=== PATIENT | female | born 1950 | race Caucasian/White ===

== ENCOUNTER 2016-11-13 06:49 | Observation (INO) | payer OTHER ==
[~2016-11-13] VITALS: Ht 157.5 cm; Wt 90.2 kg
[2016-11-13] VITALS (11 sets, daily range): BP systolic 116–155; BP diastolic 47–98
--- NOTE | ~2016-11-13 | H ---
[facility] [place] [address] HISTORY AND PHYSICAL Name: STRAUSSREBECCA Gene Room #: 211-P [facility] Loulou MMelviRMelvi#: [id number] Admission: 11/13/16 Attend Phys: Berny Bravo MD, Discharge: 11/14/16 Date of : 52 Report #: [id number] THIS REPORT FOR: //name// For History and Physical, please see office documentation/handwritten note in the patient's medical record. <ELECTRONICALLY SIGNED> By: Berny Bravo MD, FACC 11/26/16 1544 0849 Berny Bravo MD, FACC /jr
--- NOTE | ~2016-11-13 | CATHLAB ---
[facility] [address] [place] [place] [address] INVASIVE PROCEDURE REPORT Name: STRAUSSREBECCA K Room #: 211-P [facility]#: [id number] Admission: 11/13/16 Attend Phys: Berny Bravo, Discharge: 11/14/16 Date of : 52 Date of Service: 11/13/16 0934 Report #: [id number] THIS REPORT FOR: //name// CC: Berny [facility] DATE OF SERVICE: 11/13/2016 PROCEDURES: Left ventriculography, coronary angiography, PTCA stent to LAD. DESCRIPTION OF PROCEDURE: The patient brought to the catheterization with recurrent chest pain, anginal symptoms and a nuclear stress test suggesting anterior ischemia. Right groin prepped and draped in sterile manner. ____ Xylocaine was used for local anesthesia. Versed was given for conscious sedation. A 6-Kiswahili sheath in the right femoral artery over the wire. Initially, a straight pigtail catheter utilized from a single CLEMENTE ventriculogram. SL4 left coronary system, FR4 right coronary system, multiple views and obliques were taken. The patient tolerated it well. There was evidence of some progression in the proximal mid LAD lesion which was hazy and consistent with the findings. The ostial diagonal branch was noted, as was an ostial RCA which is in the 60% range with some damping in the catheter previously noted in mid RCA of 40-50%. That was a dominant vessel. I utilized a 3-0 EBU guide, heparin, Integrilin boluses. A 2.5 x 12 balloon to dilate this proximal mid LAD lesion and then this exchanged over the wire magnet for 2.75 x 12 Resolute drug-eluting stent, deployed at 12 atmospheres and then dilated within the stent margins to 16 atmospheres. Final result was excellent with RONDA grade 3 flow. This did chcf a very small diagonal branch, which would be of no consequence. The patient tolerated well, hemodynamically stable and pain free. ACT with 200 Mynx closure was utilized without complication. The patient transferred back to CCU to follow stent protocol. HEMODYNAMICS: Aortic 120/80, LV 130/9. IMPRESSION: 1. Successful PTCA stent of the mid LAD from 80% to 0% with a 2.75 x 12 Resolute, post ____ 3.0 mm, RONDA grade 3 flow. 2. Left main, free of disease. 3. Ostial diagonal lesion a 50%, we will follow. 4. A proximal ostial LAD lesion of 50%, we will follow. 5. Circumflex marginal with mild disease. 6. Dominant right has an eccentric ostial lesion on the right of 60%-65%, which had been previously noted. 7. A mid RCA also with 50% mid vessel lesion, continue to follow. RECOMMENDATIONS: We will continue aggressive risk factor modification, dual antiplatelet therapy x 6-12 months, we will reevaluate, no lifting for 48 hours. [facility] [address] [place] [address] INVASIVE PROCEDURE REPORT Name: REBECCA STRAUSS Room #: 211-P [facility] M.R.#: [id number] Admission: 11/13/16 Attend Phys: Berny Bravo, Discharge: 11/14/16 Date of : 52 Date of Service: 11/13/16 0934 Report #: [id number] No lying in tub, Jacuzzi or navarro for a week. The patient transferred to CCU in stable condition. <ELECTRONICALLY SIGNED> By: Berny Bravo MD, FACC 11/26/16 1543 0934 1159 Berny Bravo MD, FACC /nt
--- NOTE | ~2016-11-13 | EKG ---
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
--- NOTE | ~2016-11-13 | EKG ---
[address] [address] ELECTROCARDIOGRAM REPORT Name: REBECCA STRAUSS Room #: 211-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 : 1950 Requested By: Berny Bravo Order Number: [id number] MD: Nhan Freed Measurements Intervals [place] Rate: 67 P: 58 [place]: 127 QRS: 22 QRSD: 94 T: 36 QT: 433 QTc: 457 Interpretive Statements Sinus rhythm No significant abnormality Compared to ECG 11/13/2016 07:35:18 No significant changes Electronically Signed On 11-14-2016 7:55:53 CDT by Nhan Freed [email or web address] <ELECTRONICALLY SIGNED> By: Nhan Freed MD, [facility] 11/14/16 0755 [phone] Nhan Freed MD, [facility] /EPI
--- NOTE | ~2016-11-13 | D ---
[facility] [place] [address] [address] [place] [address] DISCHARGE SUMMARY Name: REBECCA STRAUSS Room #: 211-P [facility] Loulou Arenas#: [id number] Admission: 11/13/16 Attend Phys: Berny Bravo MD, Discharge: 11/14/16 Date of : 52 Report #: [id number] THIS REPORT FOR: //name// CC: Berny Bravo [facility] COURSE: The patient is a 66-year-old female admitted with an abnormal stress test suggesting anterior wall ischemia and documented disease from a catheterization last year. Subsequently, looked to be some progression in the proximal mid LAD lesion, this was successfully dilated and stented with a 2.75 x 12 Resolute stent, postdilated 3.0 mm. Ostial LAD of 40-50%. We will follow ostial diagonal 50%, ostial right 60-65%. Aspirin and Effient currently for dual antiplatelet therapy and then to resume home medications. Up and ambulating, doing well. 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 No hematoma formation. She is up and ambulating. The EKG is sinus rhythm, no changes. She will be discharged to home. No lifting for 48 hours. No lying in tub, Jacuzzi or navarro for a week. Avoid MRI and dental work for 3 months. DISCHARGE DIAGNOSES: 1. Coronary artery disease with successful percutaneous transluminal coronary angioplasty stent of left anterior descending. 2. Hypertension. 3. Hypercholesterolemia. 4. Degenerative joint disease. DISCHARGE MEDICATIONS: Include aspirin, Effient. Full aspirin for a month and reduced to baby aspirin, Imdur 60, Ranexa 500 b.i.d., lisinopril 10, vitamin D, Lipitor 40, Paxil 10, vitamin B12, and VESIcare. Thank you for allowing me to assist in the care of this patient. <ELECTRONICALLY SIGNED> By: Berny Bravo MD, FACC 11/26/16 1544 0834 0942 Berny Bravo MD, FACC /nt
[~2016-11-13 06:49] MED LIST: ADULT LOW DOSE81 MG PO; ADVAIR 500-501 EACH INH; ARIXTRA; ATORVASTATIN CA40 MG PO; ATORVASTATIN CA80 MG PO; CELEXA40 MG PO; IMDUR 30 MG TAB30 M1 PO; LISINOPRIL-HCT1 EAC1 PO; LOPRESSOR25 PO; METOPROLOL SUCC25 M1 PO; NIACIN 500 MG500 M1 PO; NIACIN PO; NORCO 5-325 TA1 EACH PO; OXYIR5 MG PO; PAXIL10 MG PO; PAXIL40 MG PO; PREVACID15 MG PO; PRINIVIL10 MG PO; RANEXA1000 MG PO; SINGULAIR 10 MG10 M1 PO; SLOW FE 160MG160 MG PO; ULTRAM 50MG TAB50 MG PO; VITAMIN D1000 UNI1 PO
[2016-11-13] MEDS ORDERED: VITAMIN B-12500 MCG PO (07:16)
[2016-11-13] MEDS ORDERED: VESICARE10 M1 PO (07:16)
[2016-11-13] MEDS ORDERED: VENTOLIN HFA 1818 GM INH (07:17)
[2016-11-13] MEDS ORDERED: PROTONIX40 M1 PO (07:17)
[2016-11-13] MEDS ORDERED: METAMUCIL PAC1 UDPKT PO (07:18)
[2016-11-13] MEDS ORDERED: ZANTAC 150MG T150 MG PO (07:18)
[2016-11-14 03:49] LABS: CALCIUM 8.7 mg/dL (8.5-10.1); CREATININE 1.1 mg/dL (0.6-1.0); POTASSIUM 3.9 mmol/L (3.5-5.1); TROPONIN-I 0.04 ng/mL (<0.04-0.07)
[2016-11-14 04:17] LABS: HEMATOCRIT 35.5 % (37.0-47.0); HEMOGLOBIN 12.2 gm/dL (12.0-15.0); MCH 30.4 pg (26.0-34.0); MCHC 34.5 g/dL (28.0-37.0); RBC 4.03 mil/uL (4.20-5.00); RDW 13.7 % (10.5-14.5); WBC 9.5 thou/uL (4.0-11.0)
[2016-11-14 04:30] VITALS: BP 107/52
[2016-11-14 07:10] VITALS: BP 141/59
[2016-11-14] MEDS ORDERED: EFFIENT10 MG PO (08:25)
[2016-11-14] MEDS ORDERED: ASPIRIN325 PO (08:26)
[2016-11-14 08:40] VITALS: BP 141/59
[2016-11-14 09:58] VITALS: BP 141/59
== END 2016-11-14 10:10 | disposition home or self-care (01) ==
LOC: CATH 06:49 → 2N 10:30 → CATH 12:03 → 2N 11-14 10:10
PROVIDERS: Internal Medicine Cardiovascular Disease
DX: I25.10 Atherosclerotic heart disease of native coronary artery without angina pectoris (principal); I10 Essential (primary) hypertension; E78.00 Pure hypercholesterolemia, unspecified; M19.90 Unspecified osteoarthritis, unspecified site; Z95.5 Presence of coronary angioplasty implant and graft